=== PATIENT | male | born 1975 | race Caucasian/White ===

== ENCOUNTER 2022-09-16 20:04 | Emergency (ER) | payer OTHER, SELFPAY ==
[2022-09-16 20:06] VITALS: BP 166/101; PULSE 86; RESP 16; TEMP 36.6; O2SAT 97; BMI 37.5
--- NOTE | 2022-09-16 21:02 | DI.US.S_ITS ---
PROCEDURE: US PERIPH VENOUS LOW EXTREM RT INDICATIONS: eval for DVT TECHNIQUE: Real-time imaging, as well as color and pulse Doppler interrogation, were performed of the lower extremity deep veins from the inguinal ligament to the popliteal fossa. COMPARISON: None. FINDINGS: There is occlusive thrombus within the right popliteal vein as well as nonocclusive thrombus throughout the superficial femoral vein. IMPRESSION: 1. Deep venous thrombosis in the right lower extremity including occlusive thrombus in the popliteal vein. Findings reported to Dr. Baez on 09/16/2022 at 9:45 p.m. by the isotope technologist. Dictated by: Ivan Quarles M.D. on 09/16/2022 at 22:53 Approved by: Ivan Quarles M.D. on 09/16/2022 at 22:54
--- NOTE | 2022-09-16 21:02 | ED.EXTPRO ---
HPI - Extremity Problem General Chief complaint: Extremity Problem,Nontraumatic Stated complaint: rt leg pain, wants to r/o blood clot Time Seen by Provider: 09/16/22 20:25 Source: patient Mode of arrival: Ambulatory History of Present Illness HPI Narrative: Patient is a 47-year-old male who is here for evaluation of a swollen right leg. He states that his leg has been swollen for the past couple years. Sometimes it is worse than others. It started after he had an Achilles tendon repair. Over the past several months he is also had a rash that his started to develop on the lateral aspect of his right leg around the outside of his knee. He also has a rash on the inside of his upper thigh. He has put moisturizing cream over the area. He states that there was another small area of redness and he was concerned that maybe there was a blood clot. He denies chest pain or shortness of breath. No specific trauma. He is never had a blood clot in the past. Related Data Previous Rx's Medication Instructions Recorded apixaban 5 mg tablet (Eliquis) 5 mg PO BID #60 tabs 09/16/22 apixaban 5 mg tablet (Eliquis) See Rx Instructions .Route 09/16/22 .COMPLEX #70 tabs Allergies Allergy/AdvReac Type Severity Reaction Status Date / Time No Known Drug Allergies Allergy Verified 09/16/22 23:48 Review of Systems Constitutional Constitutional: Reports system reviewed and no additional complaints, except as documented Musculoskeletal Musculoskeletal: Reports system reviewed and no additional complaints, except as documented Integumentary/Breasts Skin/Breast: Reports system reviewed and no additional complaints, except as documented Neurologic Neurologic: Reports system reviewed and no additional complaints, except as documented Exam Initial Vital Signs Initial Vital Signs: Vital Signs Temperature 97.8 F 09/16/22 20:06 Pulse Rate 86 09/16/22 20:06 Respiratory Rate 16 09/16/22 20:06 Blood Pressure 166/101 H 09/16/22 20:06 Pulse Oximetry 97 09/16/22 20:06 Oxygen Delivery Method Room Air 09/16/22 20:06 Skin Other: [place] does have a rash on the lateral aspect of the right leg. It does have the appearance of eczema. There was also a similar rash on the medial upper thigh again with the appearance of eczema. No vesicles. No drainage. Neuro Sensory Exam: no sensory deficits noted Extrem Other: Circumferential right lower extremity swelling. Course Orders Ordered: ED Orders 09/16/22 21:02 US periph venous low extrem rt Stat Discontinued Medications Apixaban (Apixaban 5 Mg Tablet) 10 mg PO NOW ONE Stop: 09/16/22 23:45 Last Admin: 09/16/22 23:48 Dose: 10 mg Documented By: Vital Signs Vital signs: Vital Signs - 8 hr 09/16/22 20:06 09/16/22 23:49 Temperature 97.8 F Pulse Rate 86 70 Respiratory Rate 16 16 Blood Pressure 166/101 H 129/83 Pulse Oximetry 97 95 Oxygen Delivery Method Room Air Room Air MDM - Extremity (Nontraumatic) Imaging Data US - DVT: Radiologist's Impression: PROCEDURE:? US PERIPH VENOUS LOW EXTREM RT ? INDICATIONS:? eval for DVT ? TECHNIQUE:? Real-time imaging, as well as color and pulse Doppler interrogation, were performed of the lower extremity deep veins from the inguinal ligament to the popliteal fossa.? ? COMPARISON:? None. ? FINDINGS:? ? There is occlusive thrombus within the right popliteal vein as well as nonocclusive thrombus throughout the superficial femoral vein. ? IMPRESSION:? ? 1. Deep venous thrombosis in the right lower extremity including occlusive thrombus in the popliteal vein.? ? Findings reported to Dr. Baez on 09/16/2022 at 9:45 p.m. by the supervisor microbiology technologists. [facility] Narrative Medical decision making narrative: His ultrasound today does show a DVT. This is somewhat unusual as the swelling that he is had in his right leg has been there for the past couple years however the ultrasound shows a blood clot that is more consistent with an acute clot rather than a chronic clot. Also the redness on his leg is more consistent with an eczema. This is not consistent with cellulitis. We will treat him with blood thinners. Is given 1st dose here in the ER and a prescription was sent for the remainder. He was instructed need a follow-up with his primary doctor. He was given return precautions. We also discussed that he could try a small amount of steroid cream over the area to see if that does not improve the rashes. I also recommend that he follow-up with dermatology. She expressed understanding and agreement with plan. Discharge Plan Departure Patient Disposition: Home Clinical Impression: Deep vein thrombosis of lower extremity, Rash Instructions: DI for Deep Vein Thrombosis Activity Restrictions/Additional Instructions: I do recommend that you keep putting the moisturizing lotion over the rash. This does need to be followed up by your primary doctor and potentially needs to have a referral to see Dermatology. We ultrasound today did show that you had a blood clot in your right lower extremity. We do need to put you on blood thinners. This also requires follow-up with a primary doctor. Take the blood thinners as directed. Return to the emergency department for new or worsening symptoms. Prescriptions: New Eliquis 5 mg tablet See Rx Instructions .ROUTE .COMPLEX Qty: 70 0RF Rx Instructions: 2T PO BID for 7D then 1T PO QD after Eliquis 5 mg tablet 5 mg PO BID Qty: 60 3RF Stand Alone Forms: Patient Portal/API
[2022-09-16] MEDS: APIXABAN 5 MG TABLET 10 MG PO (23:48)
[2022-09-16 23:49] VITALS: BP 129/83; PULSE 70; RESP 16; O2SAT 95
== END 2022-09-16 23:55 | disposition home or self-care (01) ==
PROVIDERS: Emergency Provider Emergency Medicine
DX: I82.401 Acute embolism and thrombosis of unspecified deep veins of right lower extremity (principal); R21 Rash and other nonspecific skin eruption
CPT/HCPCS: 93971; 99283